=== PATIENT | male | born 1935 | race Caucasian/White ===

== ENCOUNTER → 2018-08-24 | Outpatient (CLI) | payer MEDICARE ==
[~2018-08-24] MED LIST: AMLO10TA7 PO; ASPI-1012 PO; FINA5TAB41 PO; HYDR-4457 PO; LOSA50TA64 PO; MULT1CAP32 PO; OMEGA PLEX PO; TERA2CAP4 PO; [UNRECOGNIZED DRUG - OTHER] PO; [UNRECOGNIZED DRUG - OTHER] PO
== END | disposition home or self-care (01) ==
LOC: SHCH 10:57
PROVIDERS: ATTEND Internal Medicine Cardiovascular Disease
DX: R06.00 Dyspnea, unspecified (principal); I50.9 Heart failure, unspecified
CPT/HCPCS: 93925

== ENCOUNTER → 2018-09-05 | Outpatient (CLI) | payer MEDICARE | END | disposition home or self-care (01) | LOC: SHCH 07:53 | PROVIDERS: ATTEND Internal Medicine Cardiovascular Disease | DX: I37.1 Nonrheumatic pulmonary valve insufficiency (principal); I50.9 Heart failure, unspecified | CPT/HCPCS: 93306 ==

== ENCOUNTER → 2018-09-26 | Outpatient (CLI) | payer MEDICARE ==
[~2018-09-26] MED LIST changes: +REGADENOSON 0.4 MG/5 ML PF SYG IVP SCH
== END | disposition home or self-care (01) ==
LOC: SHCH 08:57
PROVIDERS: ATTEND Internal Medicine Cardiovascular Disease
DX: R06.02 Shortness of breath (principal)
CPT/HCPCS: 78452; 93017; 96374; A9500 ×2; J2785

== ENCOUNTER → 2018-09-27 | Outpatient (CLI) | payer MEDICARE ==
[~2018-09-27] MED LIST changes: +ALBUTEROL SULFATE 0.083% 2.5 MG/3 ML INH IH ONE; -REGADENOSON 0.4 MG/5 ML PF SYG IVP SCH
== END | disposition home or self-care (01) ==
LOC: RESP 10:13
PROVIDERS: ATTEND Internal Medicine Cardiovascular Disease
DX: R06.02 Shortness of breath (principal)
CPT/HCPCS: 94060; 94727; 94729

== ENCOUNTER 2019-09-28 09:50 | Inpatient (IN) | payer MEDICARE ==
[~2019-09-28] VITALS: Ht 177.8 cm; Wt 93.6 kg
[~2019-09-28 09:50] MED LIST changes: -ALBUTEROL SULFATE 0.083% 2.5 MG/3 ML INH IH ONE
[2019-09-28 10:22] LABS: BASOPHILS % (AUTO) 0.5 % (0.0-5.0); EOSINOPHILS % (AUTO) 2.1 % (0.0-8.0); HEMATOCRIT 24.6 % (42-54); LYMPHOCYTES % (AUTO) 14.8 % (21.0-51.0); MEAN CORPUSCULAR HEMOGLOBIN 26.6 pg (27.0-33.0); MEAN CORPUSCULAR HGB CONC 31.3 g/dL (32.0-36.0); MEAN CORPUSCULAR VOLUME 85.1 fL (79-99); MONOCYTES % (AUTO) 8.1 % (3.0-13.0); NEUTROPHILS % (AUTO) 74.2 % (40.0-77.0); PLATELET COUNT (AUTO) 264 K/uL (130-400); RED BLOOD CELL COUNT(AUTO) 2.89 MIL/uL (4.50-6.20); RED CELL DISTRIBUTION WIDTH 17.2 % (11.0-15.5); WHITE BLOOD COUNT (AUTO) 5.8 K/uL (4.8-10.8)
[2019-09-28 10:31] LABS: CREATININE 1.1 mg/dL (0.5-1.5); POTASSIUM 4.4 mmol/L (3.5-5.1)
[2019-09-28 10:35] LABS: INR 1.12 (0.85-1.15); PARTIAL THROMBOPLASTIN TIME 27.5 SEC (26.3-35.5)
[2019-09-28 10:36] LABS: ALBUMIN 3.5 g/dL (3.5-5.0); BILIRUBIN,TOTAL 0.4 mg/dL (0.2-1.0); TOTAL PROTEIN, SERUM 7.5 g/dL (6.0-8.3)
[2019-09-28] MEDS ORDERED: ONDANSETRON HCL 4 MG/2 ML VIAL IVP PRN (11:45)
[2019-09-28] MEDS ORDERED: PANTOPRAZOLE SODIUM 80 MG in SODIUM CHLORIDE 0.9% 100 ML IV SCH (11:45)
[2019-09-28] MEDS ORDERED: ACETAMINOPHEN 325 MG TAB PO PRN (11:45)
[2019-09-28 12:37] LABS: BASOPHILS % (AUTO) 0.4 % (0.0-5.0); EOSINOPHILS % (AUTO) 2.4 % (0.0-8.0); HEMATOCRIT 21.2 % (42-54); LYMPHOCYTES % (AUTO) 19.9 % (21.0-51.0); MEAN CORPUSCULAR HEMOGLOBIN 26.9 pg (27.0-33.0); MEAN CORPUSCULAR HGB CONC 31.6 g/dL (32.0-36.0); MEAN CORPUSCULAR VOLUME 85.1 fL (79-99); MONOCYTES % (AUTO) 9.4 % (3.0-13.0); NEUTROPHILS % (AUTO) 67.5 % (40.0-77.0); PLATELET COUNT (AUTO) 221 K/uL (130-400); RED BLOOD CELL COUNT(AUTO) 2.49 MIL/uL (4.50-6.20); RED CELL DISTRIBUTION WIDTH 17.2 % (11.0-15.5); WHITE BLOOD COUNT (AUTO) 5.4 K/uL (4.8-10.8)
[2019-09-28] MEDS ORDERED: SODIUM CHLORIDE 0.9% 100 ML IV ONE (12:51)
[2019-09-28] MEDS ORDERED: SODIUM CHLORIDE 0.9% 1000ML 1,000 ML IV ONE (12:51)
[2019-09-28 12:57] LABS: POTASSIUM 4.2 mmol/L (3.5-5.1)
[2019-09-28 13:01] LABS: INR 1.15 (0.85-1.15); PROTHROMBIN TIME 12.4 SEC (9.6-11.6)
[2019-09-28] MEDS ORDERED: SODIUM CHLORIDE 0.9% 250 ML IV ONE (13:37)
[2019-09-28] MEDS ORDERED: PEG 3350/NA SULF,BICARB,CL/KCL 4000 ML SOLN PO SCH (17:00)
[2019-09-28 18:30] LABS: HEMATOCRIT 24.4 % (42-54)
[2019-09-28 18:55] VITALS: BP 137/68
[2019-09-28 22:07] LABS: HEMATOCRIT 24.5 % (42-54)
[2019-09-29] VITALS (15 sets, daily range): BP systolic 100–143; BP diastolic 51–78
--- NOTE | 2019-09-29 01:18 | NUR ---
MEDICATIONS Patient noted to have completed all of the [place]
[2019-09-29 05:21] LABS: BASOPHILS % (AUTO) 0.5 % (0.0-5.0); EOSINOPHILS % (AUTO) 4.3 % (0.0-8.0); HEMATOCRIT 24.1 % (42-54); LYMPHOCYTES % (AUTO) 15.6 % (21.0-51.0); MEAN CORPUSCULAR HEMOGLOBIN 26.4 pg (27.0-33.0); MEAN CORPUSCULAR HGB CONC 31.5 g/dL (32.0-36.0); MEAN CORPUSCULAR VOLUME 83.7 fL (79-99); MONOCYTES % (AUTO) 10.3 % (3.0-13.0); PLATELET COUNT (AUTO) 225 K/uL (130-400); RED BLOOD CELL COUNT(AUTO) 2.88 MIL/uL (4.50-6.20); RED CELL DISTRIBUTION WIDTH 16.7 % (11.0-15.5)
[2019-09-29 05:35] LABS: POTASSIUM 3.9 mmol/L (3.5-5.1)
[2019-09-29] MEDS ORDERED: SODIUM CHLORIDE 0.9% 10 ML VIAL ONE (08:05)
[2019-09-29] MEDS ORDERED: PROPOFOL 10 MG/ML 20ML VIAL IV ONE (08:05)
[2019-09-29] MEDS ORDERED: PHENYLEPHRINE HCL 10 MG/ML 1ML VIAL IV ONE (08:05)
--- NOTE | 2019-09-29 16:15 | NUR ---
cm note met with patient and spouse, lives with spouse ,Aniyah chery from [place] is independent with ambulation and adls. and active, no dme. uses cpap at [facility], provided by [employer] ([email or web address]). states no dc needs. dc plan is back home at [place]. Addendum: 09/29/19 at 1619 by MÓNICA ROCHA CM Amended: Links added.
[2019-09-30] VITALS: BP 145/61
[2019-09-30 04:00] VITALS: BP 139/52
[2019-09-30 07:30] VITALS: BP 139/74
[2019-09-30 11:30] VITALS: BP 137/68
[2019-09-30] MEDS ORDERED: FERROUS SULFATE 325 MG TABLET.DR PO SCH (13:30)
[2019-09-30 13:47] LABS: HEMATOCRIT 26.6 % (42-54); MEAN CORPUSCULAR HEMOGLOBIN 26.9 pg (27.0-33.0); MEAN CORPUSCULAR HGB CONC 31.6 g/dL (32.0-36.0); MEAN CORPUSCULAR VOLUME 85.3 fL (79-99); PLATELET COUNT (AUTO) 230 K/uL (130-400); RED BLOOD CELL COUNT(AUTO) 3.12 MIL/uL (4.50-6.20); RED CELL DISTRIBUTION WIDTH 16.7 % (11.0-15.5); WHITE BLOOD COUNT (AUTO) 7.2 K/uL (4.8-10.8)
[2019-09-30 14:13] LABS: ALBUMIN 2.9 g/dL (3.5-5.0); BILIRUBIN,TOTAL 0.4 mg/dL (0.2-1.0); POTASSIUM 3.9 mmol/L (3.5-5.1); TOTAL PROTEIN, SERUM 6.8 g/dL (6.0-8.3)
[2019-09-30 15:30] VITALS: BP 150/72
[2019-09-30] MEDS: PANTOPRAZOLE SODIUM 40 MG TABLET.DR PO SCH (17:30)
[2019-09-30] MEDS: FERROUS SULFATE 325 MG TABLET.DR PO SCH (17:30)
[2019-09-30 20:25] VITALS: BP 149/65
[2019-10-01] VITALS (7 sets, daily range): BP systolic 133–152; BP diastolic 55–77
[2019-10-01 05:08] LABS: BASOPHILS % (AUTO) 0.1 % (0.0-5.0); EOSINOPHILS % (AUTO) 1.6 % (0.0-8.0); HEMATOCRIT 24.6 % (42-54); LYMPHOCYTES % (AUTO) 11.3 % (21.0-51.0); MEAN CORPUSCULAR HEMOGLOBIN 26.6 pg (27.0-33.0); MEAN CORPUSCULAR HGB CONC 31.7 g/dL (32.0-36.0); MONOCYTES % (AUTO) 12.5 % (3.0-13.0); NEUTROPHILS % (AUTO) 74.2 % (40.0-77.0); PLATELET COUNT (AUTO) 242 K/uL (130-400); RED BLOOD CELL COUNT(AUTO) 2.93 MIL/uL (4.50-6.20); RED CELL DISTRIBUTION WIDTH 16.2 % (11.0-15.5); WHITE BLOOD COUNT (AUTO) 7.5 K/uL (4.8-10.8)
[2019-10-01 05:20] LABS: ALBUMIN 2.6 g/dL (3.5-5.0); BILIRUBIN,TOTAL 0.4 mg/dL (0.2-1.0); CREATININE 0.9 mg/dL (0.5-1.5); POTASSIUM 3.9 mmol/L (3.5-5.1); TOTAL PROTEIN, SERUM 6.3 g/dL (6.0-8.3)
[2019-10-01] MEDS: PANTOPRAZOLE SODIUM 40 MG TABLET.DR PO SCH ×2 (06:19→16:30)
[2019-10-01] MEDS: AMLODIPINE BESYLATE 5 MG TAB PO SCH (08:26)
[2019-10-01] MEDS: FERROUS SULFATE 325 MG TABLET.DR PO SCH ×2 (08:26→17:00)
--- NOTE | 2019-10-01 09:27 | NUR ---
DESATURATION WITH AMBULATION TO BATHROOM, O2 SATS POST AMBULATION 86% ON ROOM AIR, PT TACHYPNEIC AND LABORED BREATHING, INFORMED PATIENT ABOUT INCREASED RISK FOR SYMPTOMS OF SOB WITH AFIB AND ANEMIA. ALSO INFORMED PATIENT THAT O2 EXTENSION WILL BE PROVIDED FOR AMBULATION TO BATHROOM AND REMINDED TO UTILIZE CALL LIGHT FOR ASSISTANCE AND NON SLIP SOCKS TO REDUCE RISK OF FALLS. CALL LIGHT WITHIN REACH.
[2019-10-01] MEDS ORDERED: CEFTRIAXONE SODIUM 500 MG VIAL IV SCH (09:40)
[2019-10-01] MEDS: AZITHROMYCIN 500MG+NS 250ML 250 ML IV SCH (11:01)
[2019-10-01] MEDS: UNASYN 1.5GM+NS 100ML 100 ML IV SCH ×3 (14:21→23:54)
--- NOTE | 2019-10-01 15:55 | NUR ---
DC PLAN RECEIVED ORDER FOR [facility]. SPOKE TO PATIENT. NOT SURE IF WANTS TO GO. NIYA MALDONADO FROM [place] HAS A BUSINESS UP THERE HE WANTS TO GET BACK TO. EXPLAINED NEED. SAID WILL TALK TO SPOUSE. Addendum: 10/01/19 at 1556 by ISABELLE MCFARLANE RN CM Amended: Links added.
[2019-10-02 03:15] VITALS: BP 149/78
[2019-10-02 04:26] LABS: BASOPHILS % (AUTO) 0.1 % (0.0-5.0); EOSINOPHILS % (AUTO) 1.5 % (0.0-8.0); HEMATOCRIT 24.6 % (42-54); LYMPHOCYTES % (AUTO) 13.7 % (21.0-51.0); MEAN CORPUSCULAR HEMOGLOBIN 26.5 pg (27.0-33.0); MEAN CORPUSCULAR HGB CONC 31.7 g/dL (32.0-36.0); MEAN CORPUSCULAR VOLUME 83.7 fL (79-99); MONOCYTES % (AUTO) 15.5 % (3.0-13.0); NEUTROPHILS % (AUTO) 68.9 % (40.0-77.0); PLATELET COUNT (AUTO) 229 K/uL (130-400); RED BLOOD CELL COUNT(AUTO) 2.94 MIL/uL (4.50-6.20); WHITE BLOOD COUNT (AUTO) 7.3 K/uL (4.8-10.8)
[2019-10-02 04:44] LABS: ALBUMIN 2.6 g/dL (3.5-5.0); BILIRUBIN,TOTAL 0.5 mg/dL (0.2-1.0); POTASSIUM 3.7 mmol/L (3.5-5.1); TOTAL PROTEIN, SERUM 6.5 g/dL (6.0-8.3)
[2019-10-02] MEDS: PANTOPRAZOLE SODIUM 40 MG TABLET.DR PO SCH ×2 (05:38→17:29)
[2019-10-02] MEDS: UNASYN 1.5GM+NS 100ML 100 ML IV SCH ×3 (05:40→17:29)
[2019-10-02 08:18] VITALS: BP 134/74
[2019-10-02 09:04] LABS: APPEARANCE,URINE Clear (CLEAR); BILIRUBIN,URINE Negative (NEGATIVE); COLOR,URINE Yellow (YELLOW); GLUCOSE, URINE (UA) Negative (NEGATIVE); KETONES,URINE 15 mg/dL (NEGATIVE); LEUKOCYTE ESTERASE ,URINE Negative (NEGATIVE); NITRATE,URINE Negative (NEGATIVE); OCCULT BLOOD,URINE Negative (NEGATIVE); PH,URINE 5.5 (5.0-8.0); PROTEIN,URINE Negative (NEGATIVE); UROBILINOGEN,URINE 0.2 mg/dL (0.2-1.0)
[2019-10-02 09:14] LABS: AMPHET/METH SCREEN,URINE NEGATIVE (NEGATIVE); BARBITURATE SCREEN, URINE NEGATIVE (NEGATIVE); BENZODIAZEPINES SCREEN,URINE NEGATIVE (NEGATIVE); CANNABINOID SCREEN,URINE NEGATIVE (NEGATIVE); COCAINE SCREEN,URINE NEGATIVE (NEGATIVE); OPIATE SCREEN,URINE NEGATIVE (NEGATIVE); PHENCYCLIDINE SCREEN,URINE NEGATIVE (NEGATIVE)
[2019-10-02 09:26] LABS: BACTERIA,URINE None Seen /HPF (None Seen); RBC,URINE 0-1 /HPF (0-1); SQUAMOUS EPITHELIAL CELL,UR 0-2 /HPF (0-2); WBC,URINE 0-1 /HPF (0-1)
[2019-10-02 11:48] VITALS: BP 133/58
[2019-10-02] MEDS: AZITHROMYCIN 500MG+NS 250ML 250 ML IV SCH (11:57)
[2019-10-02] MEDS: AMLODIPINE BESYLATE 5 MG TAB PO SCH (11:58)
[2019-10-02] MEDS: FERROUS SULFATE 325 MG TABLET.DR PO SCH ×2 (11:58→17:29)
[2019-10-02 16:16] VITALS: BP 150/79
[2019-10-02 20:54] VITALS: BP 137/65
[2019-10-02 23:41] VITALS: BP 136/71
[2019-10-03 03:42] VITALS: BP 144/69
[2019-10-03 04:07] LABS: BASOPHILS % (AUTO) 0.3 % (0.0-5.0); EOSINOPHILS % (AUTO) 2.9 % (0.0-8.0); LYMPHOCYTES % (AUTO) 15.6 % (21.0-51.0); MEAN CORPUSCULAR HEMOGLOBIN 26.5 pg (27.0-33.0); MEAN CORPUSCULAR HGB CONC 31.6 g/dL (32.0-36.0); MEAN CORPUSCULAR VOLUME 83.9 fL (79-99); MONOCYTES % (AUTO) 14.5 % (3.0-13.0); NEUTROPHILS % (AUTO) 66.4 % (40.0-77.0); PLATELET COUNT (AUTO) 238 K/uL (130-400); RED BLOOD CELL COUNT(AUTO) 2.98 MIL/uL (4.50-6.20); RED CELL DISTRIBUTION WIDTH 15.7 % (11.0-15.5); WHITE BLOOD COUNT (AUTO) 6.5 K/uL (4.8-10.8)
[2019-10-03 04:33] LABS: ALBUMIN 2.6 g/dL (3.5-5.0); BILIRUBIN,TOTAL 0.5 mg/dL (0.2-1.0); CREATININE 0.8 mg/dL (0.5-1.5); POTASSIUM 3.7 mmol/L (3.5-5.1); TOTAL PROTEIN, SERUM 6.7 g/dL (6.0-8.3)
[2019-10-03 08:24] VITALS: BP 128/57
[2019-10-03] MEDS: UNASYN 1.5GM+NS 100ML 100 ML IV SCH ×3 (08:32→17:47)
[2019-10-03] MEDS: FERROUS SULFATE 325 MG TABLET.DR PO SCH ×2 (08:32→16:58)
[2019-10-03] MEDS: PANTOPRAZOLE SODIUM 40 MG TABLET.DR PO SCH ×2 (08:32→16:58)
[2019-10-03] MEDS: AMLODIPINE BESYLATE 5 MG TAB PO SCH (09:36)
[2019-10-03] MEDS: AZITHROMYCIN 500MG+NS 250ML 250 ML IV SCH (09:36)
[2019-10-03 11:35] VITALS: BP 134/64
[2019-10-03 16:14] VITALS: BP 135/65
[2019-10-03 20:36] VITALS: BP 138/58
[2019-10-04] VITALS: BP 141/64
[2019-10-04] MEDS: UNASYN 1.5GM+NS 100ML 100 ML IV SCH ×4 (00:20→17:59)
--- NOTE | 2019-10-04 00:55 | NUR ---
NEW IV STARTED. 20G LEFT FA. PT STATED NO CONCERNS. CONTINUES ON ABTS.
[2019-10-04 04:00] VITALS: BP_SYST 147; BP_SYST 150; BP_DIAS 51; BP_DIAS 68
[2019-10-04 04:54] LABS: BASOPHILS % (AUTO) 0.4 % (0.0-5.0); EOSINOPHILS % (AUTO) 4.3 % (0.0-8.0); HEMATOCRIT 24.9 % (42-54); LYMPHOCYTES % (AUTO) 15.5 % (21.0-51.0); MEAN CORPUSCULAR HEMOGLOBIN 26.1 pg (27.0-33.0); MEAN CORPUSCULAR HGB CONC 31.3 g/dL (32.0-36.0); MEAN CORPUSCULAR VOLUME 83.3 fL (79-99); MONOCYTES % (AUTO) 12.5 % (3.0-13.0); NEUTROPHILS % (AUTO) 66.9 % (40.0-77.0); PLATELET COUNT (AUTO) 232 K/uL (130-400); RED BLOOD CELL COUNT(AUTO) 2.99 MIL/uL (4.50-6.20); RED CELL DISTRIBUTION WIDTH 15.6 % (11.0-15.5); WHITE BLOOD COUNT (AUTO) 5.6 K/uL (4.8-10.8)
[2019-10-04 05:20] LABS: ALBUMIN 2.5 g/dL (3.5-5.0); BILIRUBIN,TOTAL 0.4 mg/dL (0.2-1.0); POTASSIUM 3.9 mmol/L (3.5-5.1); TOTAL PROTEIN, SERUM 6.5 g/dL (6.0-8.3)
[2019-10-04] MEDS: PANTOPRAZOLE SODIUM 40 MG TABLET.DR PO SCH ×2 (06:21→16:46)
[2019-10-04] MEDS ORDERED: SODIUM CHLORIDE 3% FOR INHALATION 4 ML/AMP VIAL.NEB IH ONE ×2 (06:37→10:37)
[2019-10-04 08:00] VITALS: BP 137/83
[2019-10-04] MEDS: AZITHROMYCIN 500MG+NS 250ML 250 ML IV SCH (08:15)
[2019-10-04] MEDS: AMLODIPINE BESYLATE 5 MG TAB PO SCH (08:15)
[2019-10-04] MEDS: FERROUS SULFATE 325 MG TABLET.DR PO SCH ×2 (08:15→16:46)
[2019-10-04 12:00] VITALS: BP 125/65
--- NOTE | 2019-10-04 15:03 | NUR ---
HELENA SCREEN - LOS X 6 Pt tolerating GI Soft/[place] diet order with no report of GI distress. Fair PO intake at 75%. Pt with possible constipation d/t LBM 09/30/19; Recommend stool softener/laxative as medically feasible. Noted Pt with BLE 2+ edema. RD to continue to monitor. Addendum: 10/04/19 at [address] RD Amended: Links added.
[2019-10-04 15:43] VITALS: BP 138/62
[2019-10-04 20:37] VITALS: BP 157/70
[2019-10-05] VITALS (8 sets, daily range): BP systolic 113–155; BP diastolic 59–78
[2019-10-05] MEDS: UNASYN 1.5GM+NS 100ML 100 ML IV SCH ×4 (00:12→16:47)
[2019-10-05] MEDS ORDERED: SODIUM CHLORIDE 3% FOR INHALATION 4 ML/AMP VIAL.NEB IH ONE ×2 (00:39→06:13)
[2019-10-05] MEDS ORDERED: SIMETHICONE 80 MG TAB.CHEW ONE (02:44)
--- NOTE | 2019-10-05 02:56 | NUR ---
PT STATED SOME ABDOMINAL DISCOMFORT. PAIN TO LOWER ABDOMINAL AREA. MINIMAL DISTENTION NOTED. GIVEN TYLENOL PRN AND SIMETHICONE X1 DOSE. WILL FOLLOW UP IN THE AM.
[2019-10-05 04:12] LABS: BASOPHILS % (AUTO) 0.4 % (0.0-5.0); HEMATOCRIT 24.5 % (42-54); LYMPHOCYTES % (AUTO) 15.3 % (21.0-51.0); MEAN CORPUSCULAR HGB CONC 32.2 g/dL (32.0-36.0); MEAN CORPUSCULAR VOLUME 83.6 fL (79-99); MONOCYTES % (AUTO) 12.4 % (3.0-13.0); NEUTROPHILS % (AUTO) 67.7 % (40.0-77.0); PLATELET COUNT (AUTO) 250 K/uL (130-400); RED BLOOD CELL COUNT(AUTO) 2.93 MIL/uL (4.50-6.20); RED CELL DISTRIBUTION WIDTH 15.4 % (11.0-15.5); WHITE BLOOD COUNT (AUTO) 5.2 K/uL (4.8-10.8)
[2019-10-05 04:34] LABS: ALBUMIN 2.4 g/dL (3.5-5.0); BILIRUBIN,TOTAL 0.3 mg/dL (0.2-1.0); CREATININE 0.9 mg/dL (0.5-1.5); POTASSIUM 3.7 mmol/L (3.5-5.1); TOTAL PROTEIN, SERUM 6.5 g/dL (6.0-8.3)
[2019-10-05] MEDS: PANTOPRAZOLE SODIUM 40 MG TABLET.DR PO SCH ×2 (05:34→16:14)
[2019-10-05] MEDS: AMLODIPINE BESYLATE 5 MG TAB PO SCH (08:50)
[2019-10-05] MEDS: FERROUS SULFATE 325 MG TABLET.DR PO SCH ×2 (08:50→16:14)
[2019-10-05] MEDS: AZITHROMYCIN 500MG+NS 250ML 250 ML IV SCH (08:50)
[2019-10-05] MEDS ORDERED: EPOETIN ALFA 10,000 UNIT/ML VIAL SQ SCH (09:00)
[2019-10-05] MEDS: BISACODYL 5 MG TABLET.DR PO SCH ×2 (09:25→20:30)
[2019-10-05] MEDS: METOPROLOL TARTRATE 25 MG TAB PO SCH ×2 (09:25→20:29)
[2019-10-05] MEDS: DOCUSATE SODIUM 100 MG CAP PO SCH ×2 (09:25→20:30)
[2019-10-05] MEDS: ASCORBIC ACID 500 MG TAB PO SCH (09:25)
[2019-10-05] MEDS ORDERED: LACTULOSE 20 GM/30 ML UDCUP PO PRN (10:15)
--- NOTE | 2019-10-05 15:46 | NUR ---
REPORTED TO DR. KATE PATIENT'S COMPLAINT OF PERSISTENT ABDOMINAL DISTENSION AND PAIN. MD ORDERED FOR XRAY ABDOMEN FLAT PLATE AND BLADDER SCAN. BLADDER SCAN SHOWED 38ML. REPORTED THIS TO DR. KATE. AWAITING XRAY RESULTS.
--- NOTE | 2019-10-05 16:17 | NUR ---
DR. MONTEZ IS MAKING HIS ROUNDS. NO PLANS FOR BRONCHOSCOPY AT THIS TIME.
[2019-10-06] MEDS: UNASYN 1.5GM+NS 100ML 100 ML IV SCH ×5 (00:07→23:46)
[2019-10-06 03:32] VITALS: BP 140/98
[2019-10-06 04:24] LABS: BASOPHILS % (AUTO) 0.3 % (0.0-5.0); EOSINOPHILS % (AUTO) 2.9 % (0.0-8.0); HEMATOCRIT 26.4 % (42-54); LYMPHOCYTES % (AUTO) 14.2 % (21.0-51.0); MEAN CORPUSCULAR HEMOGLOBIN 26.6 pg (27.0-33.0); MEAN CORPUSCULAR HGB CONC 31.8 g/dL (32.0-36.0); MEAN CORPUSCULAR VOLUME 83.5 fL (79-99); MONOCYTES % (AUTO) 10.5 % (3.0-13.0); NEUTROPHILS % (AUTO) 71.6 % (40.0-77.0); PLATELET COUNT (AUTO) 236 K/uL (130-400); RED BLOOD CELL COUNT(AUTO) 3.16 MIL/uL (4.50-6.20); RED CELL DISTRIBUTION WIDTH 15.2 % (11.0-15.5); WHITE BLOOD COUNT (AUTO) 6.3 K/uL (4.8-10.8)
[2019-10-06 04:43] LABS: ALBUMIN 2.6 g/dL (3.5-5.0); BILIRUBIN,TOTAL 0.3 mg/dL (0.2-1.0); CREATININE 0.9 mg/dL (0.5-1.5); TOTAL PROTEIN, SERUM 6.9 g/dL (6.0-8.3)
[2019-10-06 07:30] VITALS: BP 150/68
[2019-10-06] MEDS: ASCORBIC ACID 500 MG TAB PO SCH (08:08)
[2019-10-06] MEDS: DOCUSATE SODIUM 100 MG CAP PO SCH ×2 (08:08→20:52)
[2019-10-06] MEDS: PANTOPRAZOLE SODIUM 40 MG TABLET.DR PO SCH ×2 (08:08→16:19)
[2019-10-06] MEDS: FERROUS SULFATE 325 MG TABLET.DR PO SCH ×2 (08:08→16:19)
[2019-10-06] MEDS: BISACODYL 5 MG TABLET.DR PO SCH ×2 (08:08→20:52)
[2019-10-06] MEDS: METOPROLOL TARTRATE 25 MG TAB PO SCH ×2 (08:09→20:51)
[2019-10-06] MEDS: AMLODIPINE BESYLATE 5 MG TAB PO SCH (08:09)
[2019-10-06] MEDS: AZITHROMYCIN 500MG+NS 250ML 250 ML IV SCH (08:10)
[2019-10-06] MEDS: LOSARTAN 50 MG TABLET PO SCH (11:12)
[2019-10-06 11:30] VITALS: BP 135/63
[2019-10-06 15:30] VITALS: BP 111/58
[2019-10-06] MEDS ORDERED: OMEP10SU2 PO (16:02)
[2019-10-06] MEDS ORDERED: APIX5TAB PO (16:02)
[2019-10-06] MEDS ORDERED: FURO20TA4 PO (16:02)
[2019-10-06 19:12] VITALS: BP 146/62
[2019-10-06 23:26] VITALS: BP 141/68
[2019-10-07 03:33] VITALS: BP 137/66
[2019-10-07] MEDS: UNASYN 1.5GM+NS 100ML 100 ML IV SCH (05:53)
[2019-10-07 07:30] VITALS: BP 150/77
[2019-10-07] MEDS ORDERED: LOSARTAN 50 MG TABLET PO SCH (09:00)
[2019-10-07] MEDS ORDERED: APIX2.5T PO (09:43)
[2019-10-07] MEDS: AZITHROMYCIN 500MG+NS 250ML 250 ML IV SCH (09:43)
[2019-10-07] MEDS: DOCUSATE SODIUM 100 MG CAP PO SCH (09:43)
[2019-10-07] MEDS ORDERED: AMOX-429 PO (09:43)
[2019-10-07] MEDS: METOPROLOL TARTRATE 25 MG TAB PO SCH (09:44)
[2019-10-07] MEDS: PANTOPRAZOLE SODIUM 40 MG TABLET.DR PO SCH (09:44)
[2019-10-07] MEDS: AMLODIPINE BESYLATE 5 MG TAB PO SCH (09:44)
[2019-10-07] MEDS: ASCORBIC ACID 500 MG TAB PO SCH (09:44)
[2019-10-07] MEDS: BISACODYL 5 MG TABLET.DR PO SCH (09:44)
[2019-10-07] MEDS: FERROUS SULFATE 325 MG TABLET.DR PO SCH (09:45)
[2019-10-07] MEDS: LOSARTAN 50 MG TABLET PO SCH (11:16)
[2019-10-07 11:30] VITALS: BP 129/69
== END 2019-10-07 13:30 | disposition home or self-care (01) | DRG 377 ==
LOC: EDH 09:50 → EDHIP 11:23 → 2AH 18:43
PROVIDERS: ADMIT Internal Medicine; ATTEND Internal Medicine
PROC: 0DJD8ZZ Inspection of Lower Intestinal Tract, Via Natural or Artificial Opening Endoscopic (ICD-10-PCS; principal; 2019-09-29)
PROC: 0DJ08ZZ Inspection of Upper Intestinal Tract, Via Natural or Artificial Opening Endoscopic (ICD-10-PCS; 2019-09-29)
DX: K57.91 Diverticulosis of intestine, part unspecified, without perforation or abscess with bleeding (principal); J15.9 Unspecified bacterial pneumonia; J44.0 Chronic obstructive pulmonary disease with (acute) lower respiratory infection; D68.59 Other primary thrombophilia; I50.30 Unspecified diastolic (congestive) heart failure; I48.20 Chronic atrial fibrillation, unspecified; D64.9 Anemia, unspecified; D50.0 Iron deficiency anemia secondary to blood loss (chronic); I48.0 Paroxysmal atrial fibrillation; R91.1 Solitary pulmonary nodule; E66.9 Obesity, unspecified; I11.0 Hypertensive heart disease with heart failure; I27.20 Pulmonary hypertension, unspecified; K31.7 Polyp of stomach and duodenum; K44.9 Diaphragmatic hernia without obstruction or gangrene; K64.8 Other hemorrhoids; N40.0 Benign prostatic hyperplasia without lower urinary tract symptoms; Z79.01 Long term (current) use of anticoagulants; Z82.0 Family history of epilepsy and other diseases of the nervous system; Z84.89 Family history of other specified conditions; Z82.5 Family history of asthma and other chronic lower respiratory diseases; Z83.3 Family history of diabetes mellitus; Z96.619 Presence of unspecified artificial shoulder joint
CPT/HCPCS: 36415; 43235; 45378; 71045; 71250; 74018; 78579; 80048; 80053; 80305; 81001; 82270; 82948; 83690; 83880; 84145; 84484; 85014; 85018; 85025; 85027; 85610; 85730; 86480; 86606; 86612; 86635; 86698; 86850; 86900; 86901; 86922; 87071; 87116; 87205; 87206; 87486; 87556; 87581; 87633; 87798; 93005; 93306; 93970; 94640; A9558; C9113; G0378; J0295; J0456; J0696; J0885; J2370; J2704; J7030; P9016